=== PATIENT | male | born 1965 | race African-American/Black ===

== ENCOUNTER 2016-12-23 21:30 | Emergency (ER) | payer MEDICAID ==
[2016-12-23 21:43] VITALS: BP 140/97
== END 2016-12-24 00:52 | disposition left against medical advice (07) ==
LOC: ER 21:30
DX: Z53.9 Procedure and treatment not carried out, unspecified reason (principal); S89.91XA Unspecified injury of right lower leg, initial encounter

== ENCOUNTER 2017-01-27 09:24 | Day surgery (SDC) | payer MEDICAID ==
[~2017-01-27 09:24] MED LIST: EPINEPHRINE INJ 1 MG/10 ML DISP.SYRIN ONE; FENTANYL CITRATE INJ/PF 100 MCG/2 ML AMPUL ONE; FLUMAZENIL INJ 0.5 MG/5 ML VIAL IV ONE; GLUCAGON,HUMAN RECOMB 1 MG INJ ONE; GLYCOPYRROLATE INJ 0.4 MG/2 ML VIAL ONE; NALOXONE HCL INJ/PF 0.4 MG/1 ML SDV ONE; ONDANSETRON HCL INJ/PF 4 MG/2 ML SDV ONE
[2017-01-27] MEDS: MIDAZOLAM 2 MG/2 ML INJ ONE ×2 (09:50→09:55)
--- NOTE | 2017-01-27 10:43 | PDOC DISCHARGE SUMMARY ---
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 Diet: Start clear liquids that a regular diet as tolerated. 2. Resume all preoperative medications. All oral anticoagulants and aspirins can be resumed 24 hours after procedure. 3. If a polypectomy was performed some bleeding per rectum may occur. This should stop within 3 days. If not, please contact the office. 4. If you had a colonoscopy you may experience some bloating and delayed return of normal bowel function for several days, your regular bowel movement pattern should resume within a week. 5. Please contact [facility] at to make an appointment with Dr. Martini for 1 to 3 weeks following procedure. 6. If you have any questions or concerns regarding your care,treatment plan or follow up, please contact our office. 7. Per clinical guidelines we recommend you undergo a repeat colonoscopy in 3 years. Discharge Diet: As Tolerated Discharge Activity: Activity As Tolerated Home Care Assistance: None Needed Report the Following to Your Physician Immediately: Shortness of Breath, Increase in Pain, Fever over 101 Degrees
[2017-01-27 11:37] VITALS: BP 128/95
--- NOTE | 2017-01-27 12:22 | OPERATIVE REPORT E ---
Operative Report NAME: VIK LINARES : 1965 AGE: 51Y DATE OF SURGERY: 01/27/2017 ROOM: PREOPERATIVE DIAGNOSIS: Fistula in ano x2. 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 PROCEDURES: 1. Total colonoscopy to cecum. 2. Multiple hot snare polypectomies of polyps in the descending colon, sigmoid colon, and rectum. SURGEON: STEPHANIE BALLESTEROS M.D. ANESTHESIA: Conscious sedation. COMPLICATIONS: None. ESTIMATED BLOOD LOSS: Scant. DRAINS: None. TISSUE REMOVED OR ALTERED: Mucosal polyps. SUMMARY OF PROCEDURE: The patient was taken from the preop holding area to the endoscopy suite, where monitoring devices were attached. Conscious sedation was induced. The patient was placed in the left lateral decubitus position. Surgical plan and surgical timeout were conducted. With the patient in the extreme left lateral decubitus position, a rectal exam was performed. Findings were significant for 2 sites of drainage of purulent discharge, 1 in the mid anterior position, 1 in the mid posterior position. His sphincter tone was excellent. Index finger inserted into the anal canal suggested firmness just proximal to the anal verge, but not at the level of the dentate line. The flexible adult pediatric scope was advanced from the anorectal canal all the way to the cecum. This was an excellent setting of a well-prepped bowel. Transillumination of the anterior abdominal wall and cecal anatomy confirmed cecal intubation. The scope was withdrawn through the length of the colon, checking the mucosa carefully. There was no evidence of tumor, stricture, or bleeding. In the left colon, sigmoid colon, and rectum were multiple small polyps. All of these were small sessile, less than 3 mm. Photos were taken. Four polyps were removed, 2 in the left colon at 50 cm, 1 in the sigmoid colon approximately 25 cm from the anal verge, and 1 in the rectal canal approximately 5 cm from the anal verge. All polyps were removed with the hot snare device on medium strength. Specimens were retrieved and labeled consistent with their location. We then brought the scope through the anal canal very carefully in a retrograde fashion as well as a prograde fashion. There were internal hemorrhoids, small and collapsed. I could not appreciate a fistulous communication endoscopically in the anal canal. I brought the scope out of the patient's anal canal, and reexamined the patient with my index finger. Again, there was a suggestion of fibrous firm tissue at the 12 o'clock and at the 6 o'clock position, but without a proper rigid anoscope, it was difficult to confirm the pathoanatomy. The scope was withdrawn from the patient's anus. He tolerated the procedure well. He was taken to the recovery room in a stable condition. Per surveillance guidelines, the patient will be an appropriate candidate for a followup colonoscopy in 3 years. DICTATING PHYSICIAN: STEPHANIE BALLESTEROS M.D. [id number] PHY#: [id number] ID: [id number] JOB#: [id number] ACCT: [id number] cc:STEPHANIE BALLESTEROS M.D. >
== END 2017-01-27 11:38 | disposition home or self-care (01) ==
LOC: END 09:24
PROVIDERS: ATTEND Surgery
PROC: 0DBN8ZX Excision of Sigmoid Colon, Via Natural or Artificial Opening Endoscopic, Diagnostic (ICD-10-PCS; 2017-01-27)
PROC: 0DBP8ZX Excision of Rectum, Via Natural or Artificial Opening Endoscopic, Diagnostic (ICD-10-PCS; 2017-01-27)
PROC: 0DBG8ZX Excision of Left Large Intestine, Via Natural or Artificial Opening Endoscopic, Diagnostic (ICD-10-PCS; principal; 2017-01-27 09:45)
DX: K63.5 Polyp of colon (principal); K61.1 Rectal abscess; Z80.0 Family history of malignant neoplasm of digestive organs; Z79.891 Long term (current) use of opiate analgesic; Z79.899 Other long term (current) drug therapy
CPT/HCPCS: 45385; 88305 ×2; J2250; J3010; J0171; J1610; J2310; J2405; J3490

== ENCOUNTER 2017-03-02 12:59 | Day surgery (SDC) | payer MEDICAID ==
[2017-02-24 09:11] LABS: HEMATOCRIT 46.5 % (37.9-51.0); HEMOGLOBIN 15.1 g/dL (13.5-17.0); HGB HCT DIFFERENCE -1.2; MEAN CORPUSCULAR HEMOGLOBIN 28.8 pg (27.0-33.4); MEAN CORPUSCULAR HGB CONC 32.5 g/dL (32.0-36.0); MEAN CORPUSCULAR VOLUME 89 fl (80-97); RED BLOOD COUNT 5.24 10^6/uL (4.35-5.55); RED CELL DISTRIBUTION WIDTH 14.7 % (11.5-14.0); WHITE BLOOD COUNT 5.4 10^3/uL (4.0-10.5)
[~2017-03-02 12:59] MED LIST changes: -EPINEPHRINE INJ 1 MG/10 ML DISP.SYRIN ONE; -FENTANYL CITRATE INJ/PF 100 MCG/2 ML AMPUL ONE; -FLUMAZENIL INJ 0.5 MG/5 ML VIAL IV ONE; -GLUCAGON,HUMAN RECOMB 1 MG INJ ONE; -GLYCOPYRROLATE INJ 0.4 MG/2 ML VIAL ONE; +LACTATED RINGERS 1000 ML IV PRN; +LIDOCAINE 0.5% INJ-PF (5 MG/ML) 50 ML SDV SUBCUT PRN; +LIDOCAINE 2% JELLY 30 ML TUBE ONE; -NALOXONE HCL INJ/PF 0.4 MG/1 ML SDV ONE; -ONDANSETRON HCL INJ/PF 4 MG/2 ML SDV ONE
[2017-03-02] MEDS ORDERED: FENTANYL CITRATE INJ/PF 100 MCG/2 ML AMPUL ONE (15:15)
[2017-03-02] MEDS ORDERED: PROPOFOL INJ 200 MG/20 ML VIAL IV ONE (15:16)
[2017-03-02] MEDS ORDERED: MIDAZOLAM 2 MG/2 ML INJ ONE (15:16)
[2017-03-02] MEDS ORDERED: ONDANSETRON HCL INJ/PF 4 MG/2 ML SDV ONE (15:16)
[2017-03-02] MEDS ORDERED: EPHEDRINE SULFATE INJ 50 MG/1 ML AMPULE ONE (15:16)
[2017-03-02] MEDS ORDERED: CLINDAMYCIN PHOSPHATE INJ 300 MG/2 ML SDV ONE (17:09)
[2017-03-02] MEDS ORDERED: MORPHINE SULFATE 10 MG/ML INJ IV PRN ×2 (17:19→17:41)
[2017-03-02] MEDS ORDERED: ONDANSETRON HCL INJ/PF 4 MG/2 ML SDV IV PRN ×2 (17:19→17:41)
[2017-03-02] MEDS ORDERED: OXYCODONE-ACETAMINOPHEN 5-325 MG TABLET PO PRN ×3 (17:19→17:41)
[2017-03-02] MEDS ORDERED: DIPHENHYDRAMINE HCL 50 MG/ML VIAL IV PRN (17:19)
[2017-03-02] MEDS ORDERED: MEPERIDINE HCL/PF INJ 25 MG/1 ML DISP.SYRIN IV PRN (17:19)
[2017-03-02] MEDS ORDERED: PROMETHAZINE HCL INJ 25 MG/1 ML VIAL IV PRN ×2 (17:19)
[2017-03-02] MEDS ORDERED: FENTANYL CITRATE INJ/PF 100 MCG/2 ML AMPUL IV PRN ×3 (17:19)
[2017-03-02] MEDS ORDERED: BUPIVACAINE HCL 0.25 % INJ/PF (2.5 MG/1 ML) 30 ML VIAL ONE (17:29)
[2017-03-02] MEDS ORDERED: RINGERS SOLUTION,LACTATED 1,000 ML IV PRN (17:41)
--- NOTE | 2017-03-02 17:46 | PDOC DISCHARGE SUMMARY ---
Discharge Summary (SDC) - Discharge Final Diagnosis: anterior and posterior fistula Date of Surgery: 03/02/17 Discharge Date: 03/02/17 Condition: Stable Treatment or Instructions: [facility] [address] [place] [id number] Hemorrhoid or Anal Surgery Discharge Instructions 1. General Information: a. DO NOT DRIVE a car or operate dangerous machinery for 4-7 days or while taking narcotic prescription pain pills. b. DO NOT consume alcohol, tranquilizers, sleeping medications or any non- prescribed medications for 24 hours unless approved by your doctor or as long as taking narcotic prescription medications. c. DO NOT make important decisions or sign any important papers for the next 24 hours. d. Have a responsible person with you tonight. 2. Activity Restrictions: 2 weeks. a. Avoid heavy lifting or straining until you feel more comfortable. b. It is fine to go for walks, up and down steps, ride in a car. 3. Treatment: a. Tomorrow morning begin warm water sitz baths (soaks) with plain water. You may do 3-4 times per day or after bowel movements to help relieve spasm and pain. Place a dry gauze or panty liner over the sight to catch drainage and blood to help keep your clothing dry. b. You may use Tucks or other medicated wipes to help clean the area as needed. c. If packing used it will pass spontaneously with bowel function. External dressings and medicated gauze should be removed before sitz baths. 4. Medications: a. You may take the Toradol prescription tablets for pain one tablet every 4 hours. b. Stop the narcotic when able since you cannot take it and drive and they cause constipation. You may switch to plain Tylenol, Advil or Aleve as you transition from the narcotic. Many adults find good pain relief with Advil 600- 800 mg three times a day with meals for short courses. This can cause indigestion, ulcers, and kidney problems with long-term use. c. Resume all normal medications unless a change is specified by your doctors. d. Stool softeners are encouraged to help you for 2-4 weeks to maintain a soft stool and avoid more painful bowel movements due to pain medication. Colace is often used. e. A numbing cream may be prescribed, this can be applied after sitz baths around the perianal area before the sight is covered with a gauze pad. f. Constipation is very common after anal surgery and you may take over-the- counter medications to help stimulate the bowel such as Milk of Magnesia, Senokot tablets, prune juice and drink plenty of water. 5. Diet: a. Begin with clear liquids and if you do well you may then advance to normal foods low in fat and protein at first. Smaller portion size may be meza the first night. b. Acidic (orange juice, tomato), foods high in ruffage (grapes, celery, asparagus) and spicy foods should be avoided for comfort the first 2-3 weeks since they can cause more burning sensation with bowel movements. 6..Follow Up Care: a. Please call the office to schedule a follow up appointment with your doctor for 2 weeks. In the event of any postoperative problems or questions or you may call the office during business hours or the On-Call physician evenings and weekends at [facility]. [facility] I understand the instructions for my postoperative care as described above and a copy has been given to me. Patient/Significant Other Witness Date Prescriptions: Ketorolac Tromethamine [Toradol 10 mg Tablet] 10 mg PO Q6HP PRN #20 tablet PRN Reason: Discharge Diet: As Tolerated Report the Following to Your Physician Immediately: Nausea, Vomiting, Fever over 101 Degrees, Unusual Bleeding, Swelling, Drainage-Foul Smelling
--- NOTE | 2017-03-02 17:50 | Operative Report ---
Operative Report PREOPERATIVE DIAGNOSIS: Fistula in ano, anterior and posterior position POSTOPERATIVE DIAGNOSIS: Same OPERATION: 1. Exam under anesthesia. 2. Anterior fistulotomy with debridement and curetting of fistula tract. 3. Posterior fistula debridement with seton placement SURGEON: STEPHANIE AKERS TEXTILE SLITTING MACHINE OPERATOR: KRISTIN SWAIN ANESTHESIA: Spinal TISSUE REMOVED OR ALTERED: Portions of the anterior fistula COMPLICATIONS: None ESTIMATED BLOOD LOSS: 35 cc INTRAOPERATIVE FINDINGS: See below PROCEDURE: The patient was taken from the preop holding area the main operating room where successful spinal anesthesia was induced. He was placed in the prone jackknife position buttocks spread. Perianal tissue was prepped in sterile fashion. Surgical plan surgical timeout were conducted Findings were significant for 2 external perianal openings approximately 1-2 cm from the anal verge. The anal canal was dilated up to admit to adult fingers. The bullet anoscope was inserted into the anal canal. We focused on the anterior fistula first. A probe was placed through the external opening and internal opening was identified just inside the anal canal, distal to the dentate line. It felt to be superficial, possibly involving some fibers of the external sphincter muscle. We removed that probe and rotated the endoscope into the posterior position. The posterior fistulous opening was probed with a variety of metallic probes until we found the internal opening which was intersphincteric by palpation and and into the anal canal above the dentate line. For this reason a seton red was placed through the fistulous tract. I then debrided with a 15 blade the external opening of the posterior fistula tract including skin and some of the chronic granulation tissue diving down into the external sphincter muscle. I then used a curette to debride some of the tract cephalad to this area. Bleeding was minimal. There was no formal specimen sent to pathology We now rotated the endoscope around and call our attention to the anterior fistulous tract. Since it appeared to be involving only minimal external sphincter fibers, I elected to open the tract widely with electrocautery and so this was done. 15 blade was used to excise the external opening tissue which is primarily chronic granulation tissue and fibrotic tissue and this was sent to pathology as anterior fistula tract. Hemostasis was achieved with electrocautery. We felt we had completed the operation successfully. Quarter percent Marcaine was injected into the perianal tissues, total of 20 cc, and Gelfoam was placed into the anal canal with lidocaine jelly associated with it. Postop tolerated the procedure well, was taken recovery room in stable condition.
[2017-03-02 19:12] VITALS: BP 115/78
== END 2017-03-02 22:45 | disposition home or self-care (01) ==
LOC: OROUT 12:59 → 5 19:02 → OROUT 22:45
PROVIDERS: ATTEND Surgery
PROC: 0DQQXZZ Repair Anus, External Approach (ICD-10-PCS; principal; 2017-03-02 15:00)
DX: K61.1 Rectal abscess (principal); Z80.0 Family history of malignant neoplasm of digestive organs; Z86.010 Personal history of colon polyps; M54.9 Dorsalgia, unspecified; Z79.891 Long term (current) use of opiate analgesic
CPT/HCPCS: 36415; 85027; 88305 ×2; 46020; J2250; J3490; J2405; S0020; 902; J2704; J3010

== ENCOUNTER 2017-09-29 17:58 | Emergency (ER) | payer MEDICAID ==
--- NOTE | 2017-09-29 20:20 | ER Document Report ---
HPI - HPI Pain Level: 4 Notes: Patient is a 52-year-old male who presents ED complaining of left lateral/ anterior shoulder pain status post fall 3 weeks ago. Patient states that he fell when he was on the sidewalk and caught himself with his left arm. Patient states that he felt pain in his shoulder thereafter. Patient states that overhead activities make the pain worse. The pain does not radiate. Patient otherwise has no other concerns or complaints. He is still able to perform ADLs without any other difficulties. Denies any headache, fever, head injury, neck pain, URI, sore throat, chest pain, palpitations, syncope, cough, shortness of breath, wheeze, dyspnea, abdominal pain, nausea/vomiting/diarrhea, urinary retention, dysuria, hematuria, loss of control of bowel or bladder, numbness/tingling, saddle anesthesia, muscle paralysis/weakness, or rash. - ROS Notes: REVIEW OF SYSTEMS: CONSTITUTIONAL : Denies fever, chills, or sweats. Denies recent illness. EENT: Denies eye, ear, throat, or mouth pain or symptoms. Denies nasal or sinus congestion or discharge. Denies throat, tongue, or mouth swelling or difficulty swallowing. CARDIOVASCULAR: Denies chest pain. Denies palpitations or racing or irregular heart beat. Denies ankle edema. RESPIRATORY: Denies cough, cold, or chest congestion. Denies shortness of breath, difficulty breathing, or wheezing. GASTROINTESTINAL: Denies abdominal pain or distention. Denies nausea, vomiting , or diarrhea. Denies blood in vomitus, stools, or per rectum. Denies black, tarry stools. Denies constipation. GENITOURINARY: Denies difficulty urinating, painful urination, burning, frequency, blood in urine, or discharge. MUSCULOSKELETAL: see hpi SKIN: Denies rash, lesions or sores. NEUROLOGICAL: Denies confusion or altered mental status. Denies passing out or loss of consciousness. Denies dizziness or lightheadedness. Denies headache. Denies weakness or paralysis or loss of use of either side. Denies problems with gait or speech. Denies sensory loss, numbness, or tingling. Denies seizures. ALL OTHER SYSTEMS REVIEWED AND NEGATIVE. Dictation was performed using [employer] recognition software Past Medical History - Social History Smoking Status: Unknown if Ever Smoked Family History: CAD - mother and father, Hypertension - mother and father - Past Medical History Cardiac Medical History: Denies: Hx Coronary Artery Disease, Hx Heart Attack, Hx Hypertension Pulmonary Medical History: Reports: Hx Pneumonia - 15 YRS AGO Denies: Hx Asthma, Hx Bronchitis, Hx COPD Neurological Medical History: Denies: Hx Cerebrovascular Accident, Hx Seizures Renal/ Medical History: Denies: Hx Peritoneal Dialysis Musculoskeltal Medical History: Denies Hx Arthritis - Immunizations Hx Diphtheria, Pertussis, Tetanus Vaccination: Yes - 2010 [facility] Provider Document - CONSTITUTIONAL Agree With Documented VS: Yes Notes: PHYSICAL EXAMINATION: GENERAL: Well-appearing, well-nourished and in no acute distress. NECK: Normal range of motion, supple without lymphadenopathy LUNGS: Breath sounds clear to auscultation bilaterally and equal. No wheezes rales or rhonchi. HEART: Regular rate and rhythm without murmurs, rubs, gallops. Musculoskeletal: Lt shoulder: LROM to active to abduction over-head. FROM to passive. Strength 4+/5 to abduction left shoulder and empty can test ?positive. Neg speed's test. N/V intact distal. + mild tenderness to the superior deltoid to palp with resistance at abduction. Extremities: No cyanosis, clubbing, or edema b/l. Peripheral pulses 2+. Capillary refill less than 3 seconds. NEUROLOGICAL: Cranial nerves grossly intact. Normal speech, normal gait. Normal sensory, motor exams PSYCH: Normal mood, normal affect. SKIN: Warm, Dry, normal turgor, no rashes or lesions noted. - INFECTION CONTROL TRAVEL OUTSIDE OF THE [place] IN LAST 30 DAYS: No - RESPIRATORY O2 Sat by Pulse Oximetry: 95 Course - Re-evaluation Re-evalutation: 09/29/17 20:55 Patient is an afebrile, well-hydrated, 52-year-old male who presents the ED with left shoulder pain. X-ray showed osteoarthritis with possible loose foreign body in the intra-articular area versus calcific tendinosis. Vitals are otherwise stable. PE relatively unremarkable aside for some weakness to his supraspinatus. No suspicion for any neurovascular compromise, obvious tendon/ligament rupture, obvious fracture/dislocation, septic joint. Recommend conservative measures for symptoms. Recheck with your PCM in 3-5 days. Call orthopedics to schedule an appointment for further evaluation and management. Return to the ED with any worsening/concerning symptoms otherwise as reviewed in discharge. Patient is in agreement. - Vital Signs Vital signs: Temp Pulse Resp BP Pulse Ox 98.6 F 89 16 132/91 H 95 09/29/17 18:26 09/29/17 18:26 09/29/17 18:26 09/29/17 18:26 09/29/17 18:26 Discharge - Discharge Clinical Impression: Left shoulder pain Qualifiers: Chronicity: acute Qualified Code(s): M25.512 - Pain in left shoulder Condition: Stable Disposition: HOME, SELF-CARE Instructions: Shoulder Injury ([facility]), Exercise Program for the Shoulder ([facility]) Additional Instructions: Rest, Ice Tylenol/ibuprofen as needed Light stretches daily Strength exercises as able Moist heat and massage may help F/u with your PCP in 3-5 days for a recheck Call orthopedics tomorrow to schedule an appointment for further evaluation and management Return to the ED with any worsening symptoms and/or development of fever, headache, chest pain, palpitations, syncope, shortness of breath, trouble breathing, abdominal pain, n/v/d, muscle weakness/paralysis, numbness/tingling, swelling, redness, or other worsening symptoms that are concerning to you. Forms: Elevated Blood Pressure Referrals: ILSA PATEL PA-C [Primary Care Provider] - Follow up in 3-5 days [facility] [Provider Group] - Follow up as needed
--- NOTE | 2017-09-29 20:50 | RADIOLOGY REPORT (SQ) ---
EXAM DESCRIPTION: SHOULDER LEFT 2 OR MORE VIEWS COMPLETED DATE/TIME: 09/29/2017 8:36 pm REASON FOR STUDY: left shoulder pain COMPARISON: None. NUMBER OF VIEWS: Three views. TECHNIQUE: Internal rotation, external rotation, and Y view images acquired of the left shoulder. LIMITATIONS: None. FINDINGS: MINERALIZATION: Normal. BONES: No acute fracture or dislocation. No worrisome bone lesions. JOINTS: Mild osteoarthritis of the acromioclavicular and glenohumeral joints. VISUALIZED LUNGS AND RIBS: No pneumothorax. No rib fracture. SOFT TISSUES: Rounded calcifications/ossific body projecting just above the humeral head which may re present calcific tendinosis versus intra-articular loose body. OTHER: No other significant finding. IMPRESSION: MILD OSTEOARTHRITIS OF THE LEFT SHOULDER WITH INTRA-ARTICULAR LOOSE BODY VERSUS CALCIFIC TENDINOSIS. NO FRACTURE OR DISLOCATION. TECHNICAL DOCUMENTATION: JOB ID: [id number] [employer]- All Rights Reserved
[2017-09-29 21:13] VITALS: BP 141/92
== END 2017-09-29 21:13 | disposition home or self-care (01) ==
LOC: ER 17:58
DX: M25.512 Pain in left shoulder (principal)
CPT/HCPCS: 99283

== ENCOUNTER 2017-10-04 01:05 | Emergency (ER) | payer MEDICAID ==
[2017-10-04 01:27] VITALS: BP 136/87
[2017-10-04] MEDS ORDERED: KETOROLAC TROMETHAMINE 60 MG/2 ML SDV IM ONE (02:19)
[2017-10-04] MEDS ORDERED: MORPHINE SULFATE IR 15 MG TABLET PO ONE (02:19)
[2017-10-04] MEDS ORDERED: LIDOCAINE 5% (700 MG) TRANSDERMAL ADH..PATCH TP ONE (02:19)
--- NOTE | 2017-10-04 03:05 | ER Document Report ---
ED General - General Chief Complaint: Arm Pain Stated Complaint: LEFT ARM PAIN Time Seen by Provider: 10/04/17 02:17 Notes: Patient is a 52-year-old male who presents with ongoing left shoulder pain. Patient states that he fell approximately 3 weeks ago with a posteriorly outstretched arm and felt an immediate strain to his left shoulder. He states that since that time he has had a dull, constant, throbbing pain to the left shoulder and deltoid that is worsened by abduction of the arm. He is left side dominant. He notes that he has been trying [id number] analgesics without any improvement of his pain. He has not seen a primary doctor orthopedic surgeon regarding today's concerns. He has no history of similar injuries in the past. He denies any focal weakness, numbness, or pallor to his hand. TRAVEL OUTSIDE OF THE [place] IN LAST 30 DAYS: No - Related Data Allergies/Adverse Reactions: No Known Allergies Allergy (Verified 03/02/17 13:16) Past Medical History - General Information source: Patient - Social History Smoking Status: Never Smoker Frequency of alcohol use: None Drug Abuse: None Lives with: Family Family History: CAD - mother and father, Hypertension - mother and father Patient has suicidal ideation: No Patient has homicidal ideation: No - Past Medical History Cardiac Medical History: Denies: Hx Coronary Artery Disease, Hx Heart Attack, Hx Hypertension Pulmonary Medical History: Reports: Hx Pneumonia - 15 YRS AGO Denies: Hx Asthma, Hx Bronchitis, Hx COPD Neurological Medical History: Denies: Hx Cerebrovascular Accident, Hx Seizures Renal/ Medical History: Denies: Hx Peritoneal Dialysis Musculoskeltal Medical History: Denies Hx Arthritis - Immunizations Hx Diphtheria, Pertussis, Tetanus Vaccination: Yes - 2010 Review of Systems - Review of Systems Notes: Constitutional: Negative for fever. HENT: Negative for sore throat. Eyes: Negative for visual changes. Cardiovascular: Negative for chest pain. Respiratory: Negative for shortness of breath. Gastrointestinal: Negative for abdominal pain, vomiting or diarrhea. Genitourinary: Negative for dysuria. Musculoskeletal: Positive for left shoulder pain Skin: Negative for rash. Neurological: Negative for headaches, weakness or numbness. 10 point ROS negative except as marked above and in HPI. Physical Exam - Vital signs Vitals: Temp Pulse Resp BP Pulse Ox 99.1 F 81 14 136/87 H 97 10/04/17 01:21 10/04/17 01:21 10/04/17 01:21 10/04/17 01:10/04/17 01:21 Interpretation: Normal Notes: PHYSICAL EXAMINATION: GENERAL: Well-appearing, well-nourished and in no acute distress. HEAD: Atraumatic, normocephalic. EYES: sclera anicteric, conjunctiva are normal. ENT: Moist mucous membranes. NECK: Normal range of motion LUNGS: Normal work of breathing HEART: 2+ radial pulses bilaterally EXTREMITIES: no pitting or edema. No cyanosis. Pain with abduction of the shoulder past 90 on the left. RMU motor and sensory distribution is intact bilaterally. No obvious swelling or deformity to left shoulder NEUROLOGICAL: No focal neurological deficits. Moves all extremities spontaneously and on command. 5 out of 5 biceps and triceps strength bilaterally. PSYCH: Normal mood, normal affect. SKIN: Warm, Dry, normal turgor, no rashes or lesions noted. Course - Re-evaluation Re-evalutation: 10/04/17 03:01 Patient presents with 3 weeks of left shoulder pain after having a fall on a posteriorly outstretched hand. An x-ray done 2 days ago did not demonstrate any acute fracture dislocation. He states the pain is worse when he abducts and elevates his arm above 90, consistent with a likely ligamentous injury. RMU motor and sensory distribution is intact. He has 5 out of 5 biceps and triceps strength. No deformity of the area. No additional areas of concern for the patient. I have recommended outpatient pain control, patient orthopedic follow-up, as well as strict return precautions. At this time will discharge with return precautions and follow-up recommendations. Verbal discharge instructions given a the bedside and opportunity for questions given. Medication warnings reviewed. Patient is in agreement with this plan and has verbalized understanding of return precautions and the need for primary care follow-up in the next 24-72 hours. - Vital Signs Vital signs: Temp Pulse Resp BP Pulse Ox 99.1 F 81 14 136/87 H 97 10/04/17 01:21 10/04/17 01:21 10/04/17 01:21 10/04/17 01:21 10/04/17 01:21 Discharge - Discharge Clinical Impression: Left shoulder pain Qualifiers: Chronicity: acute Qualified Code(s): M25.512 - Pain in left shoulder Condition: Good Disposition: HOME, SELF-CARE Additional Instructions: Your x-ray does not show any acute fracture today. You likely have a ligamentous injury. For your pain: Take ibuprofen 600 mg and acetaminophen 1000 mg every 6 hours together as needed for pain. If this does not control your pain you may take 15 mg of oral morphine every 4 hours as needed. Please be very careful about using the oral morphine and only use this for severe pain. You can apply topical lidocaine to the area that can be purchased over- the-counter. This is called Aspercreme with lidocaine. Continue to apply ice to the area is much your able. Please follow-up with your primary care physician if you do not have improving your symptoms in the next 1-2 weeks. Please return immediately if you develop weakness, numbness, spreading redness from the area, or any other symptoms that are concerning to you. Prescriptions: Morphine Sulfate [Morphine Ir 15 mg Tablet] 15 mg PO Q4HP PRN #6 tablet PRN Reason: Referrals: ILSA PATEL PA-C [Primary Care Provider] - Follow up as needed CHEO BARBER MD [ACTIVE STAFF] - Follow up as needed
== END 2017-10-04 03:15 | disposition home or self-care (01) ==
LOC: ER 01:05
DX: M25.512 Pain in left shoulder (principal); M79.602 Pain in left arm; W19.XXXA Unspecified fall, initial encounter
CPT/HCPCS: 99283; 96372; J1885; J3490

== ENCOUNTER 2017-10-24 11:12 | Emergency (ER) | payer MEDICAID ==
[2017-10-24 11:49] VITALS: BP 129/92
--- NOTE | 2017-10-24 12:46 | ER Document Report ---
HPI - HPI Patient complains to provider of: Left shoulder pain Onset: Other - 6 weeks Onset/Duration: Persistent Quality of pain: Achy Pain Level: 4 Context: Patient states that he slipped on snow with his left arm outstretched jarring his left shoulder 6 weeks ago. Patient has complained of continued pain since then. Patient was seen here for this issue in the past. Patient has not followed up with orthopedics. Patient states when asked if he had seen the orthopedic doctor; he said he "thought that was the foot doctor". Associated Symptoms: Other - Left shoulder pain. denies: Chest pain, Fever, Weakness Exacerbated by: Movement Relieved by: Remaining still Similar symptoms previously: No Recently seen / treated by doctor: Yes - ROS ROS below otherwise negative: Yes Systems Reviewed and Negative: Yes All other systems reviewed and negative - CONSTITUTIONAL Constitutional: DENIES: Fever - NEURO Neurology: DENIES: Headache, Weakness - CARDIOVASCULAR Cardiovascular: DENIES: Chest pain - RESPIRATORY Respiratory: DENIES: Trouble Breathing, Coughing - MUSCULOSKELETAL Musculoskeletal: REPORTS: Extremity pain. DENIES: Back Pain, Neck Pain - DERM Skin Color: Normal Skin Problems: None Past Medical History - General Information source: Patient - Social History Smoking Status: Never Smoker Frequency of alcohol use: None Drug Abuse: None Occupation: None Lives with: Family Family History: CAD - mother and father, Hypertension - mother and father - Past Medical History Cardiac Medical History: Denies: Hx Coronary Artery Disease, Hx Heart Attack, Hx Hypertension Pulmonary Medical History: Reports: Hx Pneumonia - 15 YRS AGO Denies: Hx Asthma, Hx Bronchitis, Hx COPD Neurological Medical History: Denies: Hx Cerebrovascular Accident, Hx Seizures Renal/ Medical History: Denies: Hx Peritoneal Dialysis Musculoskeltal Medical History: Denies Hx Arthritis, Reports Other - Chronic back pain Surgical Hx: Negative - Immunizations Hx Diphtheria, Pertussis, Tetanus Vaccination: Yes - 2010 Vertical Provider Document - CONSTITUTIONAL Agree With Documented VS: Yes Exam Limitations: No Limitations General Appearance: WD/WN, No Apparent Distress - INFECTION CONTROL TRAVEL OUTSIDE OF THE [place] IN LAST 30 DAYS: No - HEENT HEENT: Atraumatic, Normocephalic - NECK Neck: Normal Inspection, Supple - RESPIRATORY Respiratory: Breath Sounds Normal, No Respiratory Distress O2 Sat by Pulse Oximetry: 95 - CARDIOVASCULAR Cardiovascular: Regular Rate, Regular Rhythm Pulses: Normal: Radial - BACK Back: Normal Inspection - MUSCULOSKELETAL/EXTREMETIES Musculoskeletal/Extremeties: MAEW, Tender - left shoulder joint tenderness over anterior and superior aspect of the humeral head. Tenderness increases with abduction, no dislocation, no deformity - NEURO Level of Consciousness: Awake, Alert, Appropriate Motor/Sensory: No Motor Deficit, No Sensory Deficit - DERM Integumentary: Warm, Dry, No Rash Course - Re-evaluation Re-evalutation: 10/24/17 Patient presents with left shoulder joint pain symptoms consistent with ligamentous injury. No concern for fracture dislocation. Patient has previously had the shoulder x-rayed here in the department. Educated patient on importance of follow-up with orthopedic doctor, and explained to patient that this is the doctor who would evaluate shoulder joint issues as well. Patient advised that the emergency department does not manage chronic painful conditions and that he will need to see a primary doctor or orthopedic doctor for any continued pain. - Vital Signs Vital signs: Temp Pulse Resp BP Pulse Ox 98.0 F 79 20 129/92 H 95 10/24/17 11:48 10/24/17 11:48 10/24/17 11:48 10/24/17 11:48 10/24/17 11:48 Discharge - Discharge Clinical Impression: Sprain of shoulder, left Qualifiers: Encounter type: initial encounter Shoulder sprain type: unspecified sprain Qualified Code(s): S43.402A - Unspecified sprain of left shoulder joint, initial encounter Condition: Stable Disposition: HOME, SELF-CARE Instructions: Shoulder Injury ([facility]), Ultram ([facility]) Additional Instructions: return as needed for any new or worsening symptoms follow up with the orthopedic doctor (bone doctor) for further evaluation Prescriptions: Naproxen [Naprosyn 250 Nmg Tablet] 1 tab PO BID #14 tablet Tramadol HCl [Ultram 50 mg Tablet] 50 mg PO ASDIR PRN #15 tablet PRN Reason: Referrals: MANOHAR GRIMM NP [NO LOCAL MD] - Follow up as needed [facility] [Provider Group] - Follow up tomorrow
== END 2017-10-24 13:27 | disposition home or self-care (01) ==
LOC: ER 11:12
DX: S43.402A Unspecified sprain of left shoulder joint, initial encounter (principal); X58.XXXA Exposure to other specified factors, initial encounter
CPT/HCPCS: 99283